=== PATIENT | female | born 1950 | race Caucasian/White ===

== ENCOUNTER 2018-04-22 22:42 | Emergency (ER) | payer MEDICARE, BC ==
[~2018-04-22] VITALS: Ht 165.1 cm; Wt 65.2 kg
[2018-04-22] MEDS ORDERED: iohexol 300mg/ml 100ml inj. ONE (23:45)
[2018-04-22 23:54] LABS: BASOPHILS # (AUTO) 0.1 X10'3 (0-0.2); BASOPHILS % (AUTO) 0.8 % (0-1); EOSINOPHILS # (AUTO) 0.1 X10'3 (0-0.9); EOSINOPHILS % (AUTO) 1.4 % (0-6); HEMATOCRIT 38.5 % (35.0-45.0); HEMOGLOBIN 13.3 g/dl (12.0-16.0); LYMPHOCYTES # (AUTO) 3.1 X10'3 (1.1-4.8); LYMPHOCYTES % (AUTO) 40.7 % (21-51); MEAN CORPUSCULAR HEMOGLOBIN 30.9 PG (27.0-31.0); MEAN CORPUSCULAR HGB CONC 34.6 % (33.0-36.5); MEAN CORPUSCULAR VOLUME 89.3 FL (78-98); MONOCYTES # (AUTO) 0.6 X10'3 (0-0.9); MONOCYTES % (AUTO) 7.9 % (2-12); NEUTROPHILS # (AUTO) 3.7 X10'3 (1.8-7.7); NEUTROPHILS % (AUTO) 49.2 % (42-75); PLATELET COUNT 363 X10'3 (140-440); RED BLOOD COUNT 4.31 X10'6 (4.20-5.60); RED CELL DISTRIBUTION WIDTH 13.2 % (11.5-14.5); WHITE BLOOD COUNT 7.6 X10'3 (4.5-11.0)
[2018-04-22 23:57] VITALS: BP 117/67
[2018-04-23 00:11] LABS: ALANINE AMINOTRANSFERASE 45 U/L (12-78); ALBUMIN 3.9 G/DL (3.4-5.0); ALBUMIN/GLOBULIN RATIO 1.3 (1.1-1.5); ALKALINE PHOSPHATASE 74 IU/L (46-116); ANION GAP 6 (8-16); ASPARTATE AMINO TRANSFERASE 29 U/L (10-37); BILIRUBIN,TOTAL 0.3 MG/DL (0.1-1.0); BLOOD UREA NITROGEN 12 MG/DL (7-18); BUN/CREATININE RATIO 16.4 (6.6-38.0); CALCIUM 8.9 MG/DL (8.5-10.1); CHLORIDE 100 MMOL/L (99-107); CREATININE 0.73 MG/DL (0.40-0.90); GLUCOSE 82 MG/DL (70-104); SODIUM 134 MMOL/L (135-145); TOTAL CARBON DIOXIDE 28.1 MMOL/L (24-32); eGFR 80 ML/MIN
[2018-04-23 00:12] LABS: POTASSIUM 4.3 MMOL/L (3.5-5.1)
[2018-04-23 00:16] LABS: CLARITY,URINE CLEAR (Clear); COLOR,URINE YELLOW (Yellow); GLUCOSE, URINE NEGATIVE (Neg); KETONES,URINE NEGATIVE (Neg); LEUKOCYTE ESTERASE ,URINE NEGATIVE (Neg); NITRITES, URINE NEGATIVE (Neg); OCCULT BLOOD,URINE NEGATIVE (Neg); PROTEIN,URINE NEGATIVE (Neg); UA COLLECTION TYPE CLN CATCH MIDSTREAM; UROBILINOGEN,URINE 0.2 E.U/dL (0.2-1.0)
== END 2018-04-23 01:31 | disposition home or self-care (01) ==
LOC: ER 22:43
DX: R10.30 Lower abdominal pain, unspecified (principal); R19.09 Other intra-abdominal and pelvic swelling, mass and lump; Z88.0 Allergy status to penicillin; Z88.2 Allergy status to sulfonamides; Z88.1 Allergy status to other antibiotic agents; Z88.8 Allergy status to other drugs, medicaments and biological substances
CPT/HCPCS: 36415; 74177; 80053; 81003; 85025; 99285; Q9967

== ENCOUNTER 2021-06-07 13:03 | Emergency (ER) | payer MEDICARE, BC ==
[~2021-06-07] VITALS: Ht 165.1 cm; Wt 62.7 kg
[2021-06-07 13:57] LABS: BASOPHILS % (AUTO) 0.3 % (0-1); EOSINOPHILS % (AUTO) 0 % (0-6); HEMOGLOBIN 15.6 g/dl (12.0-16.0); LYMPHOCYTES % (AUTO) 13.3 % (21-51); MEAN CORPUSCULAR HEMOGLOBIN 31.8 PG (27.0-31.0); MEAN CORPUSCULAR HGB CONC 35.5 g/dL (33.0-36.5); MEAN CORPUSCULAR VOLUME 89.6 FL (78-98); MEAN PLATELET VOLUME 7.1 FL (7.4-10.4); MONOCYTES # (AUTO) 0.5 X10'3 (0-0.9); MONOCYTES % (AUTO) 7.3 % (2-12); NEUTROPHILS # (AUTO) 5.8 X10'3 (1.8-7.7); NEUTROPHILS % (AUTO) 79.1 % (42-75); PLATELET COUNT 354 X10'3 (140-440); RED BLOOD COUNT 4.91 X10'6 (4.20-5.60); RED CELL DISTRIBUTION WIDTH 13.2 % (11.5-14.5); WHITE BLOOD COUNT 7.4 X10'3 (4.5-11.0)
[2021-06-07] MEDS ORDERED: normal saline 1000ml 1,000 ML IV ONE (14:05)
[2021-06-07 14:10] LABS: ALANINE AMINOTRANSFERASE 41 U/L (12-78); ALBUMIN 3.5 G/DL (3.4-5.0); ALKALINE PHOSPHATASE 88 IU/L (46-116); ANION GAP 13 (8-16); ASPARTATE AMINO TRANSFERASE 36 U/L (10-37); BILIRUBIN,TOTAL 0.6 MG/DL (0.1-1.0); BLOOD UREA NITROGEN 11 MG/DL (7-18); BUN/CREATININE RATIO 11.7 (6.6-38.0); CALCIUM 8.4 MG/DL (8.5-10.1); CHLORIDE 97 MMOL/L (99-107); CREATININE 0.94 MG/DL (0.40-0.90); GLUCOSE 154 MG/DL (70-104); LIPASE 89 U/L (73-393); POTASSIUM 3.2 MMOL/L (3.5-5.1); SODIUM 135 MMOL/L (135-145); TOTAL CARBON DIOXIDE 25.2 MMOL/L (24-32); TOTAL PROTEIN 7.1 G/DL (6.4-8.2); eGFR 59 ML/MIN
[2021-06-07] MEDS ORDERED: potassium Cl 20 mEq SR tablet PO STA (14:22)
[2021-06-07] MEDS ORDERED: ondansetron/PF 4mg/2ml inj IV ONE (14:30)
[2021-06-07] MEDS ORDERED: CASIRIVIMAB (REGN10933) 1332MG 600 MG, IMDEVIMAB (REGN10987) 1332mg 600 MG in normal sa... IV ONE (15:25)
[2021-06-07 16:33] VITALS: BP 99/64
[2021-06-07] MEDS ORDERED: ketorolac tromethamine 15mg/ml inj. IV ONE (16:50)
[2021-06-07] MEDS ORDERED: HYDROcodone/acetaminophen 5mg/325mg tablet PO ONE ×2 (16:50→20:10)
[2021-06-07] MEDS ORDERED: ONDA4TAB12 PO (16:54)
--- NOTE | 2021-06-07 20:07 | NUR ---
Spoke with Dr. Rodriguez regarding patient abd pain and patients requesting something for pain. Dr. rodriguez stated to place a verbal order for Eldridge 5/325 mg PO once now. Patient is aware that she will not be receiving a norco prescription. Patient states that she will have a ride at 2130 tonight, but she states that she has not had anything to eat. Patient given a sandwich and water.
== END 2021-06-07 22:08 | disposition home or self-care (01) ==
LOC: ER 13:04
DX: U07.1 COVID-19 (principal); M25.551 Pain in right hip; M25.552 Pain in left hip; R11.2 Nausea with vomiting, unspecified; Z88.0 Allergy status to penicillin; Z88.2 Allergy status to sulfonamides; Z88.1 Allergy status to other antibiotic agents; Z79.899 Other long term (current) drug therapy
CPT/HCPCS: 36415; 80053; 83690; 85025; 87635; 93005; 96361; 96374; 96375; 99284; C9803; J1885; J2405; J7030; M0243; Q0243; 96365

== ENCOUNTER 2021-06-11 12:10 | Inpatient (IN) | payer MEDICARE, BC ==
[~2021-06-11] VITALS: Ht 165.1 cm; Wt 56.8 kg
[~2021-06-11 12:10] MED LIST: ONDA4TAB12 PO
[2021-06-11] MEDS ORDERED: normal saline 1000ml 1,000 ML IV ONE (14:10)
[2021-06-11] MEDS ORDERED: iohexol 350MG/ML 100ml bottle IV ONE (14:13)
[2021-06-11 15:00] LABS: BASOPHILS % (AUTO) 0.3 % (0-1); EOSINOPHILS % (AUTO) 0.2 % (0-6); HEMATOCRIT 41.8 % (35.0-45.0); HEMOGLOBIN 14.7 g/dl (12.0-16.0); LYMPHOCYTES % (AUTO) 11.4 % (21-51); MEAN CORPUSCULAR HEMOGLOBIN 31.2 PG (27.0-31.0); MEAN CORPUSCULAR HGB CONC 35.1 g/dL (33.0-36.5); MEAN PLATELET VOLUME 6.4 FL (7.4-10.4); MONOCYTES # (AUTO) 0.6 X10'3 (0-0.9); MONOCYTES % (AUTO) 6.6 % (2-12); NEUTROPHILS # (AUTO) 6.9 X10'3 (1.8-7.7); NEUTROPHILS % (AUTO) 81.5 % (42-75); PLATELET COUNT 535 X10'3 (140-440); RED BLOOD COUNT 4.69 X10'6 (4.20-5.60); RED CELL DISTRIBUTION WIDTH 13.4 % (11.5-14.5); WHITE BLOOD COUNT 8.5 X10'3 (4.5-11.0)
--- NOTE | 2021-06-11 15:06 | NUR ---
CT SCAN VIA GURNEY IN STABLE CONDITION.
[2021-06-11 15:13] LABS: PARTIAL THROMBOPLASTIN TIME 27 SECONDS (22-32)
[2021-06-11 15:15] LABS: ALANINE AMINOTRANSFERASE 31 U/L (12-78); ALBUMIN 3.4 G/DL (3.4-5.0); ALBUMIN/GLOBULIN RATIO 0.8 (1.1-1.5); ALKALINE PHOSPHATASE 85 IU/L (46-116); ANION GAP 7 (8-16); ASPARTATE AMINO TRANSFERASE 22 U/L (10-37); BILIRUBIN,TOTAL 0.7 MG/DL (0.1-1.0); BLOOD UREA NITROGEN 8 MG/DL (7-18); BUN/CREATININE RATIO 13.1 (6.6-38.0); CALCIUM 8.9 MG/DL (8.5-10.1); CHLORIDE 99 MMOL/L (99-107); CREATININE 0.61 MG/DL (0.40-0.90); GLUCOSE 112 MG/DL (70-104); SODIUM 140 MMOL/L (135-145); TOTAL CARBON DIOXIDE 33.9 MMOL/L (24-32); TOTAL PROTEIN 7.7 G/DL (6.4-8.2); eGFR > 90 ML/MIN
[2021-06-11 15:17] LABS: POTASSIUM 3.6 MMOL/L (3.5-5.1)
--- NOTE | 2021-06-11 15:44 | NUR ---
TELE NEURO CAM PUT INTO ROOM AND CONSULT REQUESTED
[2021-06-11] MEDS ORDERED: acetaminophen 325mg tablet PO PRN (16:15)
[2021-06-11] MEDS: normal saline 1000ml 1,000 ML IV SCH ×2 (16:15→17:41)
[2021-06-11] MEDS ORDERED: magnesium hydroxide 30ml (MOM) UD suspension PO PRN (16:15)
[2021-06-11] MEDS ORDERED: mag hydrox/Alum hydrox/simeth 30ml oral suspension PO PRN (16:15)
[2021-06-11 16:28] LABS: CLARITY,URINE CLOUDY (Clear); COLOR,URINE YELLOW (Yellow); GLUCOSE, URINE NEGATIVE (Neg); KETONES,URINE NEGATIVE (Neg); LEUKOCYTE ESTERASE ,URINE LARGE (Neg); NITRITES, URINE POSITIVE (Neg); OCCULT BLOOD,URINE TRACE-INTACT (Neg); PROTEIN,URINE NEGATIVE (Neg); UROBILINOGEN,URINE 0.2 E.U/dL (0.2-1.0)
[2021-06-11 16:34] LABS: UA COLLECTION TYPE CLN CATCH MIDSTREAM
[2021-06-11 16:36] LABS: BACTERIA,URINE 4+ /HPF (Neg); RBC,URINE 0-2 /HPF (0-2); SQUAMOUS EPITHELIAL CELL,UR FEW /LPF (FEW); WBC,URINE 30-50 /HPF (0-4)
[2021-06-11 16:37] LABS: MUCUS STRANDS FEW /LPF (Neg); WBC CLUMPS,URINE FEW /HPF (NEGATIVE)
[2021-06-11] MEDS ORDERED: LEVO15TA6 PO (17:10)
[2021-06-11] MEDS ORDERED: VALA500T41 PO (17:10)
--- NOTE | 2021-06-11 17:10 | NUR ---
dr. martínez at bedside.
[2021-06-11] MEDS: CefTRIAXone/D5W-Rocephin 1gm 50 ML IV SCH (18:23)
--- NOTE | 2021-06-11 19:05 | NUR ---
Patient in room ED 6. I have received report from Renato JEFFREY and had the opportunity to ask questions and assume patient care.
[2021-06-11] MEDS: ondansetron/PF 4mg/2ml inj IV PRN (19:12)
[2021-06-11] MEDS: docusate sod 100mg capsule PO SCH (21:33)
[2021-06-11] MEDS: enoxaparin 30mg/0.3ml syringe SQ SCH (21:34)
[2021-06-11 22:00] VITALS: BP 168/68
[2021-06-12] MEDS: ondansetron/PF 4mg/2ml inj IV PRN ×3 (00:59→20:03)
[2021-06-12 02:00] VITALS: BP 139/68
[2021-06-12 06:00] VITALS: BP 146/83
--- NOTE | 2021-06-12 06:26 | NUR ---
Problems reprioritized. Patient report given, questions answered & plan of care reviewed with Kayli JEFFREY.
[2021-06-12 06:32] LABS: BASOPHILS # (AUTO) 0.1 X10'3 (0-0.2); BASOPHILS % (AUTO) 1.1 % (0-1); EOSINOPHILS # (AUTO) 0.1 X10'3 (0-0.9); EOSINOPHILS % (AUTO) 1.6 % (0-6); HEMATOCRIT 39.9 % (35.0-45.0); HEMOGLOBIN 13.8 g/dl (12.0-16.0); LYMPHOCYTES # (AUTO) 1.3 X10'3 (1.1-4.8); LYMPHOCYTES % (AUTO) 21.5 % (21-51); MEAN CORPUSCULAR HEMOGLOBIN 31.2 PG (27.0-31.0); MEAN CORPUSCULAR HGB CONC 34.5 g/dL (33.0-36.5); MEAN CORPUSCULAR VOLUME 90.4 FL (78-98); MEAN PLATELET VOLUME 6.5 FL (7.4-10.4); MONOCYTES # (AUTO) 0.6 X10'3 (0-0.9); NEUTROPHILS % (AUTO) 65.8 % (42-75); PLATELET COUNT 521 X10'3 (140-440); RED BLOOD COUNT 4.41 X10'6 (4.20-5.60); RED CELL DISTRIBUTION WIDTH 13.3 % (11.5-14.5)
--- NOTE | 2021-06-12 06:35 | NUR ---
Patient in room ORTHO 4018. I have received report from RACHELE Haines and had the opportunity to ask questions and assume patient care.
[2021-06-12 06:53] LABS: ALBUMIN 2.9 G/DL (3.4-5.0); ANION GAP 10 (8-16); BLOOD UREA NITROGEN 6 MG/DL (7-18); BUN/CREATININE RATIO 11.3 (6.6-38.0); CALCIUM 8.5 MG/DL (8.5-10.1); CHLORIDE 101 MMOL/L (99-107); CHOL/HDL RATIO 3.6 (0.00-4.99); CHOLESTEROL 185 MG/DL (0-200); CREATININE 0.53 MG/DL (0.40-0.90); GLUCOSE 93 MG/DL (70-104); HDL CHOLESTEROL 52 MG/DL (35-60); LDL CHOLESTEROL 109 MG/DL (50-100); SODIUM 138 MMOL/L (135-145); TOTAL CARBON DIOXIDE 27.3 MMOL/L (24-32); TRIGLYCERIDES 80 MG/DL (20-135); eGFR > 90 ML/MIN
--- NOTE | 2021-06-12 07:14 | NUR ---
Page Sent PAGER ID: [phone] MESSAGE: [id number] Regarding 4018- Critical K+ 3.0- NO PROTOCOL ORDERED.
[2021-06-12] MEDS ORDERED: potassium Cl 20 mEq SR tablet PO PRN (07:30)
[2021-06-12] MEDS ORDERED: potassium Cl 40MEQ/1/2NS 520ml 520 ML IV PRN ×2 (07:30)
[2021-06-12] MEDS: CefTRIAXone/D5W-Rocephin 1gm 50 ML IV SCH (07:47)
[2021-06-12] MEDS: docusate sod 100mg capsule PO SCH ×2 (07:49→20:03)
[2021-06-12] MEDS: enoxaparin 30mg/0.3ml syringe SQ SCH ×2 (07:49→20:03)
[2021-06-12] MEDS: aspirin 325mg tablet, delayed-release (Ecotrin) PO SCH (07:49)
[2021-06-12] MEDS: K and/or MAG REPLACEMENT MC SCH ×2 (07:50→20:00)
[2021-06-12] MEDS: potassium Cl 20 mEq SR tablet PO PRN ×3 (07:50→16:24)
[2021-06-12] MEDS: atorvastatin 20mg tablet PO SCH (07:50)
[2021-06-12 10:00] VITALS: BP 145/70
[2021-06-12 12:00] VITALS: BP 149/80
--- NOTE | 2021-06-12 12:27 | NUR ---
Malnutrition Consult: Pt admit DX acute CVA, UTI, and COVID-19 per EMR. Pt has no edema/wounds, no significant weakness noted, appears WD/WN per ER note, pending scaled wt this admit w/ no prior wt hx, and PO 90-100% heart healthy breakfast this AM. Pt lacks minimum two malnutrition criteria at this time. Will monitor for malnutrition criteria and nutrition intervention needs this admit. Addendum: 06/12/21 at [address] Amended: Links added.
--- NOTE | 2021-06-12 12:44 | NUR ---
Page Sent PAGER ID: [phone] MESSAGE: [id number] Regarding RM 4018- Pt Elie not working, pt stated she spoke with you regarding a change. Any new orders?
[2021-06-12 16:00] VITALS: BP 139/78
[2021-06-12] MEDS: meclizine 12.5mg tablet PO PRN (17:29)
--- NOTE | 2021-06-12 18:23 | NUR ---
Problems reprioritized. Patient report given RACHELE Pappas questions answered & plan of care reviewed with .
[2021-06-12] MEDS: lactobacillus rhamnosus 10,000 MMU CELLS/CAPSULE PO SCH (20:03)
[2021-06-12] MEDS: normal saline 1000ml 1,000 ML IV SCH (20:03)
[2021-06-12 20:30] VITALS: BP 133/78
--- NOTE | 2021-06-12 23:11 | NUR ---
pt stated earlier: "I need help at home. I can't live by myself anymore. I have psych issues and I just can't think through decisions or hire somone to help me. I can't handle that. I need an assisted living situation" pt states she has tried having in home help in the past and "It hasn't gone well." seems unwilling to try that avenue. DCP ordered with SS.
--- NOTE | 2021-06-12 23:13 | NUR ---
granddaughter or daughter Nikki called - she said the family has obtained a bed at their home and they are ready to transfer patient to home. her number is [phone]. will notify day RN to tell MD ready for discharge.
[2021-06-13 02:00] VITALS: BP 145/73
[2021-06-13 04:00] VITALS: BP 133/70
--- NOTE | 2021-06-13 06:28 | NUR ---
reported to days. noted pt resting w/o distress - lab to draw blood.
[2021-06-13 06:58] LABS: BASOPHILS % (AUTO) 0.9 % (0-1); EOSINOPHILS # (AUTO) 0.1 X10'3 (0-0.9); EOSINOPHILS % (AUTO) 2.5 % (0-6); HEMOGLOBIN 14.1 g/dl (12.0-16.0); LYMPHOCYTES # (AUTO) 1.4 X10'3 (1.1-4.8); LYMPHOCYTES % (AUTO) 28.6 % (21-51); MEAN CORPUSCULAR HEMOGLOBIN 31.2 PG (27.0-31.0); MEAN CORPUSCULAR HGB CONC 35.3 g/dL (33.0-36.5); MEAN CORPUSCULAR VOLUME 88.2 FL (78-98); MONOCYTES # (AUTO) 0.6 X10'3 (0-0.9); MONOCYTES % (AUTO) 12.8 % (2-12); NEUTROPHILS # (AUTO) 2.8 X10'3 (1.8-7.7); NEUTROPHILS % (AUTO) 55.2 % (42-75); PLATELET COUNT 593 X10'3 (140-440); RED BLOOD COUNT 4.54 X10'6 (4.20-5.60); RED CELL DISTRIBUTION WIDTH 13.6 % (11.5-14.5)
[2021-06-13 07:19] LABS: ALBUMIN 2.9 G/DL (3.4-5.0); ANION GAP 7 (8-16); BLOOD UREA NITROGEN 7 MG/DL (7-18); BUN/CREATININE RATIO 11.9 (6.6-38.0); CALCIUM 8.8 MG/DL (8.5-10.1); CHLORIDE 106 MMOL/L (99-107); CREATININE 0.59 MG/DL (0.40-0.90); GLUCOSE 101 MG/DL (70-104); POTASSIUM 4.2 MMOL/L (3.5-5.1); SODIUM 140 MMOL/L (135-145); TOTAL CARBON DIOXIDE 27.1 MMOL/L (24-32); eGFR > 90 ML/MIN
[2021-06-13] MEDS: K and/or MAG REPLACEMENT MC SCH ×2 (08:00→20:00)
[2021-06-13] MEDS ORDERED: LEVOMEFOLATE CALCIUM PO SCH (08:00)
[2021-06-13] MEDS: enoxaparin 30mg/0.3ml syringe SQ SCH ×2 (08:27→22:02)
[2021-06-13] MEDS: CefTRIAXone/D5W-Rocephin 1gm 50 ML IV SCH (08:27)
[2021-06-13] MEDS: docusate sod 100mg capsule PO SCH ×2 (08:28→22:01)
[2021-06-13] MEDS: atorvastatin 20mg tablet PO SCH (08:28)
[2021-06-13] MEDS: aspirin 325mg tablet, delayed-release (Ecotrin) PO SCH (08:28)
[2021-06-13] MEDS: lactobacillus rhamnosus 10,000 MMU CELLS/CAPSULE PO SCH ×2 (08:28→22:02)
[2021-06-13] MEDS: valacyclovir 500mg tablet PO SCH (08:28)
[2021-06-13 08:40] VITALS: BP 142/89
[2021-06-13] MEDS: ondansetron/PF 4mg/2ml inj IV PRN ×2 (09:24→22:44)
[2021-06-13] MEDS: meclizine 12.5mg tablet PO PRN (09:25)
[2021-06-13 10:30] VITALS: BP 137/89
[2021-06-13 18:00] VITALS: BP 128/82
--- NOTE | 2021-06-13 18:00 | NUR ---
Patient in room ORTHO 4012. I have received report from Maurizio JEFFREY and had the opportunity to ask questions and assume patient care. Addendum: 06/14/21 at 0020 by Opal Kapadia RN Amended: Links added.
[2021-06-13 22:00] VITALS: BP 139/74
[2021-06-13] MEDS: normal saline 1000ml 1,000 ML IV SCH (22:01)
--- NOTE | 2021-06-13 22:44 | NUR ---
Pt. awake A & O x 4 sitting up in the chair denies c/o pain at this time. c/o nausea with no vomiting; administered antiemetic prn as ordered. Isolation precaution maintained. Advised pt. to call nurse with needs. Call light within reach. Addendum: 06/14/21 at 0117 by Opal Kapadia RN Amended: Links added.
--- NOTE | 2021-06-14 02:43 | NUR ---
pt resting w/o distress. up to [facility] ad jos.
[2021-06-14 06:00] VITALS: BP 139/72
--- NOTE | 2021-06-14 06:29 | NUR ---
pt sleeping. no distress. anticipate discharge - needs to find help at home.
[2021-06-14 06:32] LABS: BASOPHILS # (AUTO) 0.1 X10'3 (0-0.2); MEAN CORPUSCULAR VOLUME 90.5 FL (78-98)
[2021-06-14 06:35] LABS: BASOPHILS % (AUTO) 0.9 % (0-1); EOSINOPHILS # (AUTO) 0.2 X10'3 (0-0.9); EOSINOPHILS % (AUTO) 2.5 % (0-6); HEMATOCRIT 39.1 % (35.0-45.0); HEMOGLOBIN 13.6 g/dl (12.0-16.0); LYMPHOCYTES % (AUTO) 31.9 % (21-51); MEAN CORPUSCULAR HEMOGLOBIN 31.5 PG (27.0-31.0); MEAN CORPUSCULAR HGB CONC 34.8 g/dL (33.0-36.5); MEAN PLATELET VOLUME 6.1 FL (7.4-10.4); MONOCYTES # (AUTO) 0.8 X10'3 (0-0.9); MONOCYTES % (AUTO) 12.3 % (2-12); NEUTROPHILS # (AUTO) 3.2 X10'3 (1.8-7.7); NEUTROPHILS % (AUTO) 52.4 % (42-75); PLATELET COUNT 611 X10'3 (140-440); RED BLOOD COUNT 4.32 X10'6 (4.20-5.60); RED CELL DISTRIBUTION WIDTH 13.4 % (11.5-14.5); WHITE BLOOD COUNT 6.1 X10'3 (4.5-11.0)
[2021-06-14 06:55] LABS: ALBUMIN 2.9 G/DL (3.4-5.0); ANION GAP 6 (8-16); BLOOD UREA NITROGEN 9 MG/DL (7-18); CALCIUM 8.6 MG/DL (8.5-10.1); CHLORIDE 105 MMOL/L (99-107); CREATININE 0.69 MG/DL (0.40-0.90); GLUCOSE 104 MG/DL (70-104); POTASSIUM 4.1 MMOL/L (3.5-5.1); SODIUM 139 MMOL/L (135-145); TOTAL CARBON DIOXIDE 27.7 MMOL/L (24-32); eGFR 85 ML/MIN
[2021-06-14] MEDS: K and/or MAG REPLACEMENT MC SCH (08:00)
[2021-06-14] MEDS: enoxaparin 30mg/0.3ml syringe SQ SCH (08:12)
[2021-06-14] MEDS: CefTRIAXone/D5W-Rocephin 1gm 50 ML IV SCH (08:12)
[2021-06-14] MEDS: valacyclovir 500mg tablet PO SCH (08:12)
[2021-06-14] MEDS: lactobacillus rhamnosus 10,000 MMU CELLS/CAPSULE PO SCH (08:13)
[2021-06-14] MEDS: meclizine 12.5mg tablet PO PRN ×2 (08:13→18:00)
[2021-06-14] MEDS: aspirin 325mg tablet, delayed-release (Ecotrin) PO SCH (08:13)
[2021-06-14] MEDS: atorvastatin 20mg tablet PO SCH (08:13)
[2021-06-14] MEDS: docusate sod 100mg capsule PO SCH (08:13)
[2021-06-14] MEDS: ondansetron/PF 4mg/2ml inj IV PRN (08:28)
[2021-06-14 10:00] VITALS: BP 144/91
[2021-06-14] MEDS ORDERED: ASPI81TA52 PO (11:34)
[2021-06-14] MEDS ORDERED: CIPR-202 PO (11:34)
[2021-06-14] MEDS ORDERED: MECL-226 PO (11:34)
[2021-06-14 18:20] VITALS: BP 130/88
--- NOTE | 2021-06-14 20:00 | NUR ---
dc pt in stable condition with belongings per w/c.dc instructions already given by Maurizio JEFFREY.
== END 2021-06-14 20:00 | disposition home health service (06) | DRG 689 ==
LOC: ER 12:10 → ED HOLD 16:18 → ORTHO 4S 19:30
PROVIDERS: ADMIT Family Medicine; ATTEND Family Medicine
PROC: B3251ZZ Computerized Tomography (CT Scan) of Bilateral Common Carotid Arteries using Low Osmolar Contrast (ICD-10-PCS; principal; 2021-06-11)
PROC: B32G1ZZ Computerized Tomography (CT Scan) of Bilateral Vertebral Arteries using Low Osmolar Contrast (ICD-10-PCS; 2021-06-11)
PROC: B32R1ZZ Computerized Tomography (CT Scan) of Intracranial Arteries using Low Osmolar Contrast (ICD-10-PCS; 2021-06-11)
PROC: B3281ZZ Computerized Tomography (CT Scan) of Bilateral Internal Carotid Arteries using Low Osmolar Contrast (ICD-10-PCS; 2021-06-11)
DX: N39.0 Urinary tract infection, site not specified (principal); U07.1 COVID-19; W18.39XA Other fall on same level, initial encounter; R29.702 NIHSS score 2; R42 Dizziness and giddiness; E87.6 Hypokalemia; G83.21 Monoplegia of upper limb affecting right dominant side; Y93.89 Activity, other specified; Y92.89 Other specified places as the place of occurrence of the external cause; Y99.8 Other external cause status; Z88.0 Allergy status to penicillin; Z88.2 Allergy status to sulfonamides; Z88.1 Allergy status to other antibiotic agents; Z79.899 Other long term (current) drug therapy; Z79.82 Long term (current) use of aspirin
CPT/HCPCS: 36415; 70450; 70496; 70498; 70551; 71045; 80048; 80053; 80061; 81001; 84132; 85025; 85610; 85730; 87077; 87081; 87088; 87186; 93005; 93306; 96361; 97110; 97162; 97530; 99285; G0378; J0696; J1650; J2405; J7030; J8597; Q9967

== ENCOUNTER 2021-09-19 12:33 | Emergency (ER) | payer MEDICARE, BC ==
[~2021-09-19] VITALS: Ht 165.1 cm; Wt 56.0 kg
[~2021-09-19 12:33] MED LIST changes: +LEVO15TA6 PO; +MECL-226 PO; -ONDA4TAB12 PO; +VALA500T41 PO
[2021-09-19] MEDS ORDERED: normal saline 1000ML IV soln IVB ONE (14:25)
[2021-09-19 14:26] VITALS: BP 133/84
--- NOTE | 2021-09-19 14:51 | NUR ---
patient back in the room from ct.
[2021-09-19 14:53] LABS: BASOPHILS % (AUTO) 0.5 % (0-1); EOSINOPHILS % (AUTO) 0.3 % (0-6); HEMATOCRIT 41.1 % (35.0-45.0); HEMOGLOBIN 14.1 g/dl (12.0-16.0); LYMPHOCYTES # (AUTO) 1.5 X10'3 (1.1-4.8); LYMPHOCYTES % (AUTO) 25.6 % (21-51); MEAN CORPUSCULAR HGB CONC 34.4 g/dL (33.0-36.5); MEAN CORPUSCULAR VOLUME 90.3 FL (78-98); MEAN PLATELET VOLUME 6.5 FL (7.4-10.4); MONOCYTES # (AUTO) 0.5 X10'3 (0-0.9); MONOCYTES % (AUTO) 8.3 % (2-12); NEUTROPHILS # (AUTO) 3.8 X10'3 (1.8-7.7); NEUTROPHILS % (AUTO) 65.3 % (42-75); PLATELET COUNT 450 X10'3 (140-440); RED BLOOD COUNT 4.55 X10'6 (4.20-5.60); WHITE BLOOD COUNT 5.9 X10'3 (4.5-11.0)
[2021-09-19 15:09] LABS: ALANINE AMINOTRANSFERASE 29 U/L (12-78); ALBUMIN/GLOBULIN RATIO 1.3 (1.1-1.5); ALKALINE PHOSPHATASE 85 IU/L (46-116); ANION GAP 7 (8-16); ASPARTATE AMINO TRANSFERASE 19 U/L (10-37); BILIRUBIN,TOTAL 0.5 MG/DL (0.1-1.0); BLOOD UREA NITROGEN 7 MG/DL (7-18); BUN/CREATININE RATIO 11.5 (6.6-38.0); CALCIUM 9.2 MG/DL (8.5-10.1); CHLORIDE 100 MMOL/L (99-107); CREATININE 0.61 MG/DL (0.40-0.90); GLUCOSE 82 MG/DL (70-104); POTASSIUM 4.1 MMOL/L (3.5-5.1); SODIUM 133 MMOL/L (135-145); TOTAL CARBON DIOXIDE 26.4 MMOL/L (24-32); TOTAL PROTEIN 7.2 G/DL (6.4-8.2); eGFR > 90 ML/MIN
[2021-09-19 16:33] LABS: CLARITY,URINE CLEAR (Clear); GLUCOSE, URINE NEGATIVE (Neg); KETONES,URINE NEGATIVE (Neg); LEUKOCYTE ESTERASE ,URINE NEGATIVE (Neg); NITRITES, URINE NEGATIVE (Neg); OCCULT BLOOD,URINE NEGATIVE (Neg); PROTEIN,URINE NEGATIVE (Neg); UROBILINOGEN,URINE 0.2 E.U/dL (0.2-1.0)
[2021-09-19 16:39] LABS: COLOR,URINE STRAW (Yellow); UA COLLECTION TYPE OTHER
== END 2021-09-19 16:28 | disposition home or self-care (01) ==
LOC: ER 12:33
DX: R14.1 Gas pain (principal); R10.32 Left lower quadrant pain; K59.00 Constipation, unspecified; Z87.440 Personal history of urinary (tract) infections; Z98.51 Tubal ligation status; Z88.0 Allergy status to penicillin; Z79.2 Long term (current) use of antibiotics; Z79.899 Other long term (current) drug therapy
CPT/HCPCS: 36415; 74176; 80053; 81003; 85025; 96360; 99284; J7030

== ENCOUNTER 2021-11-27 10:35 | Emergency (ER) | payer MEDICARE, BC ==
[~2021-11-27] VITALS: Ht 165.1 cm; Wt 61.4 kg
[2021-11-27 10:39] VITALS: BP 160/83
[2021-11-27 11:38] LABS: CLARITY,URINE CLEAR (Clear); GLUCOSE, URINE NEGATIVE (Neg); KETONES,URINE NEGATIVE (Neg); LEUKOCYTE ESTERASE ,URINE NEGATIVE (Neg); NITRITES, URINE NEGATIVE (Neg); OCCULT BLOOD,URINE NEGATIVE (Neg); PROTEIN,URINE NEGATIVE (Neg); UROBILINOGEN,URINE 0.2 E.U/dL (0.2-1.0)
[2021-11-27 11:48] LABS: COLOR,URINE STRAW (Yellow); UA COLLECTION TYPE VOIDED
== END 2021-11-27 12:05 | disposition home or self-care (01) ==
LOC: ER 10:36
DX: Z02.89 Encounter for other administrative examinations (principal); R20.8 Other disturbances of skin sensation; Z87.440 Personal history of urinary (tract) infections; Z87.51 Personal history of pre-term labor; Z60.2 Problems related to living alone; Z88.0 Allergy status to penicillin; Z88.2 Allergy status to sulfonamides; Z88.1 Allergy status to other antibiotic agents; Z79.2 Long term (current) use of antibiotics; Z79.899 Other long term (current) drug therapy
CPT/HCPCS: 81003; 99283